=== PATIENT | female | born 1980 | race African-American/Black ===

== ENCOUNTER 2019-04-29 11:18 | Emergency (ER) | payer OTHER ==
[~2019-04-29] VITALS: Ht 167.6 cm; Wt 106.6 kg
[2019-04-29] MEDS ORDERED: CYCLOBENZAPRINE5 MG PO (12:55)
[2019-04-29] MEDS ORDERED: MOBIC7.5 MG PO ×2 (12:55→13:01)
[2019-04-29 13:10] VITALS: BP 145/71
== END 2019-04-29 13:13 | disposition home or self-care (01) ==
LOC: ER 11:18
DX: S09.90XA Unspecified injury of head, initial encounter (principal); M54.2 Cervicalgia; M54.5 Low back pain; E11.9 Type 2 diabetes mellitus without complications; V89.2XXA Person injured in unspecified motor-vehicle accident, traffic, initial encounter; Y93.89 Activity, other specified; Y92.89 Other specified places as the place of occurrence of the external cause; Y99.8 Other external cause status

== ENCOUNTER 2021-04-04 06:55 | Emergency (ER) | payer BC ==
[~2021-04-04] VITALS: Ht 167.6 cm; Wt 111.1 kg
[~2021-04-04 06:55] MED LIST: CYCLOBENZAPRINE5 MG PO; MOBIC7.5 MG PO
[2021-04-04 07:28] LABS: BASOPHILS 0.8 % (0.0-2.0); EOSINOPHILS 2.1 % (0.0-3.0); HEMATOCRIT 37.7 % (37.0-47.0); HEMOGLOBIN 12.2 gm/dL (12.0-15.0); MCH 28.1 pg (26.0-34.0); MCHC 32.4 g/dL (28.0-37.0); MCV 86.8 fL (80.0-100.0); MONOCYTES 9.3 % (1.0-8.0); PLATELET COUNT 229 thou/uL (150-400); POLYS 65.8 % (36.0-66.0); RBC 4.35 mil/uL (4.20-5.00); RDW 13.7 % (10.5-14.5); WBC 6.1 thou/uL (4.0-11.0)
[2021-04-04 07:44] LABS: CALCIUM 9.1 mg/dL (8.5-10.1); CREATININE 1.2 mg/dL (0.6-1.0); POTASSIUM 3.8 mmol/L (3.5-5.1)
[2021-04-04 07:50] LABS: TOTAL BILIRUBIN 0.3 mg/dL (0.2-1.0); TOTAL PROTEIN 8.4 g/dL (6.4-8.2)
[2021-04-04 07:52] VITALS: BP 132/71
[2021-04-04 08:45] LABS: URINE BILIRUBIN NEGATIVE (Negative); URINE BLOOD TRACE (Negative); URINE CLARITY CLEAR; URINE COLOR YELLOW; URINE GLUCOSE-RANDOM* NEGATIVE (Negative); URINE KETONES TRACE (Negative); URINE LEUKOCYTES-REFLEX NEGATIVE (Negative); URINE NITRITE-REFLEX NEGATIVE (Negative); URINE PROTEIN (DIPSTICK) NEGATIVE (Negative); URINE SPECIFIC GRAVITY 1.025 (1.005-1.035); URINE UROBILINOGEN 0.2 E.U./dl (0.2-1.0)
[2021-04-04] MEDS ORDERED: MECLIZINE HCL25 M1 PO (08:51)
== END 2021-04-04 09:05 | disposition home or self-care (01) ==
LOC: ER 06:55
PROVIDERS: Emergency Medicine
DX: R42 Dizziness and giddiness (principal); E11.9 Type 2 diabetes mellitus without complications; Z79.899 Other long term (current) drug therapy